=== PATIENT | male | born 1990 | race Caucasian/White ===

== ENCOUNTER 2019-11-03 11:21 | Emergency (ER) | payer SELFPAY ==
[2019-11-03 11:37] VITALS: BP 146/89; PULSE 82; RESP 16; TEMP 36.6; O2SAT 100
--- NOTE | 2019-11-03 11:52 | ED.URI ---
HPI - URI/Sore Throat General Chief Complaint: Upper Respiratory Infection Stated Complaint: Sore throat/congestion Time Seen by Provider: 11/03/19 11:52 Source: patient and RN notes reviewed Mode of arrival: ambulatory Limitations: no limitations History of Present Illness HPI Narrative: 29-year-old male who [facility] with complaints of sore throat, sinus drainage, nasal drainage, feeling feverish since Wednesday, Patient states that he has been using throat spray for comfort measures. Patient states that his throat is sore especially with swallowing, rate his pain 4/10 describes pain as sharp. Patient states that he has no cough or any ear pain, states that appetite is decreased. He states that he has been using throat spray for his discomfort.Patient does admit to vaping daily for 7 years, denies any shortness of breath or any noted wheezing. MD elicited complaint: fever, sore throat, rhinorrhea and nasal congestion Onset (ago): day(s) (2) Consistency: constant Severity: moderate Pain scale (0-10): 4 Description of mucous: clear Able to tolerate fluids by mouth: Yes Exacerbating factors: swallowing Relieving factors: nothing Associated symptoms: fever, chills, rhinorrhea, nasal congestion and sore throat Treatments prior to arrival: other (throat spray) Related Data Allergies Allergy/AdvReac Type Severity Reaction Status Date / Time No Known Allergies Allergy Verified 11/03/19 11:44 Review of Systems Review of Systems: Narrative: CONSTITUTIONAL: Reports has felt feverish, chills, or sweats. EYES: Denies visual changes, redness, or discharge. ENT: Positive rhinorrhea, congestion, sore throat, no otalgia. CARDIOVASCULAR: Denies chest pain, palpitations, or edema. RESPIRATORY: Denies cough or dyspnea. GASTROINTESTINAL: Denies abdominal pain, nausea, vomiting, or diarrhea. GENITOURINARY: Denies dysuria or hematuria. SKIN: Denies rash or itching. MUSCULOSKELETAL: Denies back pain, joint pain, or myalgia. NEUROLOGIC: Denies headache, numbness, or weakness. PSYCHIATRIC: Denies anxiety or depression. All systems reviewed & are unremarkable except as noted in HPI and below PMFSH Past Medical History Medical History (Updated 11/05/19 @ 20:53 by Vivian Barrientos NP) Hypertension Social History Social History (Updated 11/05/19 @ 20:54 by Vivian Barrientos NP) Tobacco type: e-cigarettes Additional smoking assessment comments: vapes daily for 7 years Living arrangements: with family Gender identity (if verbalized by the patient): Male Comments At time of signature, agree with nursing past medical, social history. There is no relevant family history pertinent to the presenting complaint Exam Narrative: Exam Narrative: GENERAL: Well-appearing, well-nourished, and in no acute distress. HEAD: Normocephalic, atraumatic. EYES: PERRLA and EOMI. ENT: Nares red with clear rhinorrhea no epistaxis. Mucous membranes moist.TM's normal with good light reflex, Throat red swollen with enlarged tonsils, no lesions or exudates noted NECK: Supple. lymphadenopathy CHEST: Clear to auscultation. No respiratory distress.SAO2 100% on room air HEART: Regular rate and rhythm. No murmur heard. Normal peripheral pulses. ABDOMEN: Soft, nontender, nondistended, normal active bowel sounds. EXTREMITIES: Normal range of motion. No edema. SKIN: Warm, dry, no rash. NEURO: No focal deficits. Alert and oriented x3. Course Vital Signs Vital signs: Vital Signs Temperature 36.6 C 11/03/19 11:37 Pulse Rate 82 11/03/19 11:37 Respiratory Rate 16 11/03/19 11:37 Blood Pressure 146/89 H 11/03/19 11:37 Pulse Oximetry 100 11/03/19 11:37 Temperature 36.6 C 11/03/19 11:37 Pulse Rate 82 11/03/19 11:37 Respiratory Rate 16 11/03/19 11:37 Blood Pressure 146/89 H 11/03/19 11:37 Pulse Oximetry 100 11/03/19 11:37 MDM - URI/Sore Throat Differential Diagnosis Differential diagnosis: Likely upper respiratory in
== END 2019-11-03 12:14 | disposition home or self-care (01) ==
PROVIDERS: Emergency Provider Registered Nurse; PCP Internal Medicine
DX: J02.0 Streptococcal pharyngitis (principal); F17.200 Nicotine dependence, unspecified, uncomplicated; I10 Essential (primary) hypertension
CPT/HCPCS: 87880; 99203; G0463